=== PATIENT | male | born 1995 | race Caucasian/White ===

== ENCOUNTER 2022-02-08 07:19 | Emergency (ER) | payer OTHER ==
[~2022-02-08] VITALS: Ht 188 cm; Wt 102.2 kg
[~2022-02-08 07:19] MED LIST: NAPROSYN500 MG PO; NO HOME MEDS; ZYRTEC10 MG PO; [UNRECOGNIZED DRUG - OTHER] OR
[2022-02-08 07:25] VITALS: BP 138/91
[2022-02-08] MEDS ORDERED: FOLIC ACID1 MG PO (07:27)
[2022-02-08] MEDS ORDERED: METHOTREXATE XX (07:27)
[2022-02-08] MEDS ORDERED: XELJANZ (07:28)
[2022-02-08 07:31] VITALS: BP 129/85
[2022-02-08 07:54] VITALS: BP 129/85
== END 2022-02-08 07:54 | disposition home or self-care (01) | DRG 951 ==
LOC: ED 07:19
DX: Z03.823 Encounter for observation for suspected inserted (injected) foreign body ruled out (principal)